=== PATIENT | male | born 1960 | race Caucasian/White ===

== ENCOUNTER 2023-08-17 12:37 | Outpatient (CLI) | payer OTHER ==
[2023-08-17 13:02] LABS: BASOPHILS % (AUTO) 0.3 %; EOSINOPHILS # (AUTO) 0.1 10^3/uL (0.0-0.7); EOSINOPHILS % (AUTO) 1.5 %; HCT - HEMATOCRIT 47.7 % (42.0-52.0); LYMPHOCYTES # (AUTO) 1.3 10^3/uL (1.5-3.5); LYMPHOCYTES % (AUTO) 15.8 %; MEAN CORPUSCULAR HEMOGLOBIN 30.8 pg (27.0-31.0); MEAN CORPUSCULAR HGB CONC 33.5 g/dL (32.0-36.0); MEAN CORPUSCULAR VOLUME 91.7 fL (80.0-94.0); MEAN PLATELET VOLUME 9.5 fL (7.4-11.4); MONOCYTES # (AUTO) 0.3 10^3/uL (0.0-1.0); MONOCYTES % (AUTO) 4.3 %; NEUTROPHILS # (AUTO) 6.2 10^3/uL (1.5-6.6); NEUTROPHILS % (AUTO) 77.8 %; PLT - PLATELET COUNT 285 10^3/uL (130-450)
[2023-08-17 13:11] LABS: ALBUMIN 4.3 g/dL (3.2-5.5); ALBUMIN/GLOBULIN RATIO 1.3 (1.0-2.2); ALKALINE PHOSPHATASE 75 IU/L (42-121); ALT ALANINE AMINOTRANSFERASE 21 IU/L (10-60); AST ASPARTATE AMINOTRANSFERASE 18 IU/L (10-42); BILIRUBIN,TOTAL 0.6 mg/dL (0.2-1.0); BUN - BLOOD UREA NITROGEN 17 mg/dL (6-20); CALCIUM 10.1 mg/dL (8.5-10.3); CARBON DIOXIDE - CO2 29 mmol/L (21-32); CHLORIDE 104 mmol/L (101-111); CHOL/HDL RATIO 4.7 (<5.0); CHOLESTEROL 231 mg/dL; CREATININE 1.1 mg/dL (0.6-1.3); GFR - MDRD 67 (>89); GLUCOSE 95 mg/dL (74-104); HDL CHOLESTEROL 49 mg/dL; LDL CHOLESTEROL,CALCULATED 147 mg/dL; POTASSIUM 4.2 mmol/L (3.5-4.5); SODIUM 138 mmol/L (135-145); TOTAL PROTEIN 7.5 g/dL (6.4-8.9); TRIGLYCERIDES 173 mg/dL (48-352); VLDL CHOLESTEROL 35 mg/dL
[2023-08-17 13:27] LABS: THYROID STIMULATING HORMONE 2.94 uIU/mL (0.34-5.60)
[2023-08-17 13:34] LABS: ESTIMATED AVERAGE GLUCOSE 103 mg/dL (70-100); HEMOGLOBIN A1c% 5.2 % (4.27-6.07)
== END 2023-08-17 12:38 | disposition home or self-care (01) ==
LOC: LAB 12:37
PROVIDERS: ATTEND Physician Assistant Medical
DX: Z13.9 Encounter for screening, unspecified (principal); Z86.718 Personal history of other venous thrombosis and embolism
CPT/HCPCS: 36415; 80053; 80061; 81241; 83036; 83090; 83721; 84153; 84443; 85025; 85300; 85303; 85306; 85598; 85613; 85732; 86147

== ENCOUNTER 2023-08-18 09:34 | Emergency (ER) | payer MEDICARE, OTHER ==
[2023-08-18 10:02] LABS: BASOPHILS % (AUTO) 0.4 %; EOSINOPHILS # (AUTO) 0.2 10^3/uL (0.0-0.7); EOSINOPHILS % (AUTO) 2.5 %; HCT - HEMATOCRIT 49.9 % (42.0-52.0); HGB - HEMOGLOBIN 16.1 g/dL (14.0-18.0); LYMPHOCYTES # (AUTO) 1.4 10^3/uL (1.5-3.5); LYMPHOCYTES % (AUTO) 19.8 %; MEAN CORPUSCULAR HEMOGLOBIN 29.7 pg (27.0-31.0); MEAN CORPUSCULAR HGB CONC 32.3 g/dL (32.0-36.0); MEAN CORPUSCULAR VOLUME 91.9 fL (80.0-94.0); MEAN PLATELET VOLUME 9.5 fL (7.4-11.4); MONOCYTES # (AUTO) 0.6 10^3/uL (0.0-1.0); MONOCYTES % (AUTO) 8.3 %; NEUTROPHILS % (AUTO) 68.7 %; PLT - PLATELET COUNT 280 10^3/uL (130-450); RED BLOOD COUNT 5.43 10^6/uL (4.70-6.10); WHITE BLOOD COUNT 7.2 x10^3/uL (4.8-10.8)
[2023-08-18 10:04] LABS: BILIRUBIN,URINE SMALL (NEGATIVE); GLUCOSE, URINE (UA) NEGATIVE (NEGATIVE); KETONES,URINE (UA) NEGATIVE (NEGATIVE); LEUKOCYTE ESTERASE, URINE NEGATIVE (NEGATIVE); NITRITE,URINE NEGATIVE (NEGATIVE); OCCULT BLOOD,URINE TRACE-INTA (NEGATIVE); PROTEIN,URINE NEGATIVE (NEGATIVE); UROBILINOGEN,URINE 0.2 (NORMAL) E.U./dL (NORMAL)
[2023-08-18 10:06] LABS: CLARITY,URINE CLEAR (CLEAR)
[2023-08-18 10:18] LABS: ALBUMIN 4.4 g/dL (3.2-5.5); ALBUMIN/GLOBULIN RATIO 1.4 (1.0-2.2); BILIRUBIN,TOTAL 0.8 mg/dL (0.2-1.0); CALCIUM 10.1 mg/dL (8.5-10.3); CREATININE 1.1 mg/dL (0.6-1.3); POTASSIUM 4.6 mmol/L (3.5-4.5); TOTAL PROTEIN 7.6 g/dL (6.4-8.9)
--- NOTE | 2023-08-18 10:30 | ED Physician Documentation ---
PD HPI ABD PAIN - Stated complaint Stated Complaint: DIZZY,ABD PX,NAUSEA - Chief complaint Chief Complaint: Abd Pain - History obtained from History obtained from: Patient - History of Present Illness Timing - onset: How many days ago (several days of consistent right flank pain, had had it intermitently for few weeks. No noted injury. No dysuria. No rash nor sores at onset of the pain. History of kidney stones and concerned about passing one. Also having positional vertigo the past few days. Vertigo when getting up from flat.) Timing - details: Abrupt onset, Waxing and waning (having feeling of vertigo with sitting up and turning head, improves but still faintinly there when holding head still.) Quality: Aching, Dull, Pain (consistnt in right flank area.) Location: Other (right mid abd to right flank.) Associated symptoms: Nausea, Vomiting (when the vertigo was strong after getting up.). No: Fever Similar symptoms before: Diagnosis (has had flank pain similarly due to kidney stones.) Review of Systems Constitutional: denies: Fever, Chills, Myalgias Nose: denies: Rhinorrhea / runny nose, Congestion Throat: denies: Sore throat Cardiac: denies: Chest pain / pressure Respiratory: denies: Cough Skin: denies: Rash, Lesions Neurologic: denies: Focal weakness, Numbness, Near syncope, Altered mental status, Headache, Head injury PD PAST MEDICAL HISTORY - Past Medical History Cardiovascular: Deep vein thrombosis Respiratory: None Neuro: None Endocrine/Autoimmune: None : Kidney stones Musculoskeletal: Other Other Past Medical History: chronic R shoulder pain - Past Surgical History Past Surgical History: No - Present Medications Home Medications: Ambulatory Orders Medication Instructions Recorded Confirmed Apixaban [Eliquis] 5 mg PO DAILY 08/18/23 08/18/23 Cetirizine [ZyrTEC] 10 mg PO DAILY #15 tablet 08/18/23 Lidocaine Patch 5% [Lidoderm Patch] 1 patch TOP DAILY PRN #10 patch 08/18/23 Meclizine [Antivert] 25 mg PO Q6H PRN #30 tablet 08/18/23 dexAMETHasone [Decadron] 4 mg PO DAILY #3 tablet 08/18/23 - Allergies Allergies/Adverse Reactions: Allergies Allergy/AdvReac Type Severity Reaction Status Date / Time No Known Drug Allergies Allergy Verified 08/18/23 09:47 - Social History Does the pt smoke?: No Smoking Status: Former smoker Does the pt drink ETOH?: No Does the pt have substance abuse?: No PD ED PE NORMAL - Vitals Vital signs reviewed: Yes - General General: Alert and oriented X 3, Well developed/nourished - HEENT HEENT: PERRL, EOMI (no nystagmus noted) - Neck Neck: Supple, no meningeal sign, No adenopathy, No bruit - Cardiac Cardiac: RRR, No murmur - Respiratory Respiratory: No respiratory distress, Clear bilaterally - Abdomen Abdomen: Soft, Non tender (noted to have some right CVA tenderness, no focal muscular tenderness. No rash, redness nor sores. No tenderness/pain to the left. ) - Derm Derm: Normal color, Warm and dry - Neuro Neuro: Alert and oriented X 3, ui ux engineer 2-12 intact, No motor deficit, No sensory deficit, Normal speech Eye Opening: Spontaneous Motor: Obeys Commands Verbal: Oriented GCS Score: 15 Results - Vitals Vitals: Vital Signs - 24 hr 08/18/23 08/18/23 09:40 12:51 Temperature 36.3 C L 36.3 C L Heart Rate 71 62 Respiratory 18 17 Rate Blood Pressure 133/89 H 137/86 H O2 Saturation 99 97 - Labs Labs: Laboratory Tests 08/18/23 08/18/23 08/18/23 09:52 09:56 09:56 WBC 7.2 RBC 5.43 Hgb 16.1 Hct 49.9 MCV 91.9 MCH 29.7 MCHC 32.3 RDW 13.0 Plt Count 280 MPV 9.5 Neut # (Auto) 5.0 Lymph # (Auto) 1.4 L [place] # (Auto) 0.6 Eos # (Auto) 0.2 Baso # (Auto) 0.0 Absolute Nucleated RBC 0.00 Nucleated RBC % 0.0 Sodium 136 Potassium 4.6 H Chloride 102 Carbon Dioxide 29 Anion Gap 5.0 L BUN 17 Creatinine 1.1 Estimated GFR (MDRD) 67 L Glucose 98 Calcium 10.1 Phosphorus Magnesium Total Bilirubin 0.8 AST 21 ALT 21 Alkaline Phosphatase 72 Total Protein 7.6 Albumin 4.4 Globulin 3.2 Albumin/Globulin Ratio 1.4 Lipase 25 Urine Color YELLOW Urine Clarity CLEAR Urine pH 6.0 Ur Specific [place] 1.025 Urine Protein NEGATIVE Urine Glucose (UA) NEGATIVE Urine Ketones NEGATIVE Urine Occult Blood TRACE-INTA Urine Nitrite NEGATIVE Urine Bilirubin SMALL H Urine Urobilinogen 0.2 (NORMAL) Ur Leukocyte Esterase NEGATIVE Ur Microscopic Review NOT INDICATED Urine Culture Comments NOT INDICATED 08/18/23 09:56 WBC RBC Hgb Hct MCV MCH MCHC RDW Plt Count MPV Neut # (Auto) Lymph # (Auto) [place] # (Auto) Eos # (Auto) Baso # (Auto) Absolute Nucleated RBC Nucleated RBC % Sodium Potassium Chloride Carbon Dioxide Anion Gap BUN Creatinine Estimated GFR (MDRD) Glucose Calcium Phosphorus 2.8 Magnesium 1.9 Total Bilirubin AST ALT Alkaline Phosphatase Total Protein Albumin Globulin Albumin/Globulin Ratio Lipase Urine Color Urine Clarity Urine pH Ur Specific [place] Urine Protein Urine Glucose (UA) Urine Ketones Urine Occult Blood Urine Nitrite Urine Bilirubin Urine Urobilinogen Ur Leukocyte Esterase Ur Microscopic Review Urine Culture Comments - Rads (name of study) brain MRI Relevant Findings:: Prelim report reviewed (normal brain parenchma. No acute process.) abd/pelvic CT Relevant Findings:: Prelim report reviewed (probably splenic infarct of uncertain duration. Fat containing inguinal hernias. L4/L5 DDD. No acute process otherwise. ), EMP independent interpretation of test (noted some cysts liver and right kidney, indicental. ) PD Medical Decision Making - ED course Complexity details: reviewed results (normal lytes and sodium in particular. Glucose is okay. Not evident cause of vertigo. UA without infection. ), considered differential (patient with 2 issues: right flank pain intermittent 2- 3 weeks, now consistent aching couple days. Also noting vertigo positionally for 2 days. He called his primary and orthopedist and they were concerned about CVA/central cause. He is having shoulder arthroscopy next week and needs to ensure not. ), d/w patient Reviewed Lab Results: he had labs and imaging. For the flank pain, CT was deemed best imaging for that with concerns of Pyelo, ureterolithiasis, vascular process, amongst others. MRI deemed best for brain as concern is for posterior circulation and CT yield/accuracy is lower for that. Pt was able to have Brain MRI and abd/pelvic CT obtained before having to go. He states he had important meeting in [place] and if able to be discharged, then needs to leave about 12:40 to make the meeting. My view of theimagings did not show acute process. Multiple cysts liver, right kidney, spleen. No noted kidney stones nor swelling. vertigo decreased with head turning after Toradl, Decdron and tylenol. He is driving home this after visit. Departure - Departure Disposition: 01 Home, Self Care Clinical Impression: Vertigo, Acute right flank pain Condition: Stable Record reviewed to determine appropriate education?: Yes Instructions: ED Flank Pain Uncertain Cause, ED Vertigo Unspecified Prescriptions: Meclizine [Antivert] 25 mg PO Q6H PRN #30 tablet PRN Reason: Vertigo dexAMETHasone [Decadron] 4 mg PO DAILY #3 tablet Lidocaine Patch 5% [Lidoderm Patch] 1 patch TOP DAILY PRN #10 patch PRN Reason: pain Cetirizine [ZyrTEC] 10 mg PO DAILY #15 tablet Comments: We are still awaiting the final report on the CT as well as the MRI of the brain. To my review of the imaging, I do not see any signs of kidney stones or kidney swelling and no other obvious acute process to account for the flank pain. The lumbar and lower thoracic spine also appears normal to my view. At this point I presume the pain is nerve irritation or muscular. Hopefully would be improved with some anti-inflammatories stretching heat and possibly a lidocaine patch to the area. See if you develop any other symptoms such as rash redness or sores but at this timing of it I would anticipate some skin tenderness or sores if it was shingles or skin process. No signs of compression fractures on your spine film. There certainly can be causes of pain there for other reasons such as musculoskeletal. Again on my view of it I do not see any obvious lesions in the brain to account for your dizziness such as stroke or tumors or swelling. Will call you if the radiologist sees something in particular. Otherwise your imaging results will be available on the patient portal later as well. For now we will presume you are vertigo is inner ear related which is by far the most common cause. I would suggest a combination of cetirizine antihistamine and Decadron steroid for inflammation. This will not affect your platelets or such and lieu of the upcoming shoulder surgery. Add meclizine every 6-8 hours if needed for vertigo. Tylenol every 4-6 hours if needed for the flank pain. I would not anticipate your vertigo getting in the way of your shoulder surgery. Tell them about it though so that they do not sit you up or lay her down quickly during the preop and postop process. I sent your prescriptions to your preferred pharmacy. Forms: PCP List Discharge Date/Time: 08/18/23 12:52
[2023-08-18] MEDS ORDERED: iohexoL-300 100 ML VIAL ONE (11:28)
[2023-08-18 11:36] LABS: MAGNESIUM 1.9 mg/dL (1.7-2.3); PHOSPHORUS 2.8 mg/dL (2.5-5.0)
[2023-08-18] MEDS: KETOROLAC 15 MG/ML VIAL IVP STA (11:36)
[2023-08-18] MEDS: MECLIZINE 12.5 MG TABLET PO STA (11:37)
[2023-08-18] MEDS: SODIUM CHLORIDE 0.9% 1,000 ML IV STA (11:37)
[2023-08-18] MEDS: DEXAMETHASONE 10 MG/ML VIAL IVP STA (11:37)
--- NOTE | 2023-08-18 12:25 | MRI Report ---
PROCEDURE: Brain WO INDICATIONS: vertigo for few days; blurred vison TECHNIQUE: Noncontrast axial T1 spin echo, axial T2 fast spin echo, sagittal and axial FLAIR, coronal T2 fast sp in echo, axial gradient echo, axial diffusion and ADC through the brain. COMPARISON: None. FINDINGS: Image quality: Excellent. CSF Spaces: Basal cisterns are patent. No extra-axial fluid collections. Ventricles are normal in size and shape. Brain: No intracranial masses or hemorrhage. Huynh/white matter interface is normal. Brainstem appe ars normal. Diffusion-weighted images demonstrate no acute ischemic insult. No chronic ischemic ins ults. Normal intravascular flow voids are present. Skull and face: Calvarium has normal marrow signal. Orbits appear normal. Sinuses: Sinuses and mastoids are clear. IMPRESSION: Brain MRI. Normal brain parenchyma. No acute intracranial process. Reviewed by: Sean Schafer MD on 08/18/2023 12:23 PM PDT Approved by: Sean Schafer MD on 08/18/2023 12:23 PM PDT Station ID: [id number]
[2023-08-18] MEDS: iohexoL-300 100 ML VIAL IVP ONE (12:36)
--- NOTE | 2023-08-18 12:50 | CT Report ---
PROCEDURE: Abdomen/Pelvis W INDICATIONS: right flank pain 2 days. CONTRAST: 100ml Omni TECHNIQUE: After the administration of intravenous contrast, a CT scan of the abdomen and pelvis was performed. Images were recorded and evaluated at appropriate window settings. Reformats: coronal and sagittal. F or radiation dose reduction, the following was used: automated exposure control, adjustment of mA and /or kV according to patient size. COMPARISON: None. FINDINGS: Image quality: Diagnostic. Lower chest: Unremarkable. Liver: No solid mass. Gallbladder and biliary tree: No radiopaque stones or wall thickening. No biliary dilation. Spleen: No splenomegaly. Question focal splenic infarct of uncertain chronicity.. Pancreas: No pancreatic ductal dilation. Adrenals: No adrenal nodule. Kidneys and ureters: No hydronephrosis. No renal cystic lesion which requires follow up. No solid mas s. Stomach, bowel and peritoneum: No bowel distension. No pathologic free fluid. Normal appendix. Lymph nodes: No central or retroperitoneal adenopathy. Vessels: No infrarenal aortic aneurysm. PELVIS Reproductive organs: Unremarkable. Bladder: No abnormal wall thickening, accounting for underdistention. Pelvic lymph nodes: No pelvic adenopathy by size criteria. Bones: No aggressive osseous abnormality.. Lumbar degenerative change with canal stenosis at L4-L5. Other: Bilateral fat-containing inguinal hernias.. IMPRESSION: 1. 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 2.. No other potentially acute process noted in the abdomen and pelvis. 3. Bilateral fat-containing inguinal hernias. 4. Incidental note made of canal stenosis at L4-L5. Reviewed by: Sean Schafer MD on 08/18/2023 12:49 PM PDT Approved by: Sean Schafer MD on 08/18/2023 12:49 PM PDT Station ID: [id number]
[2023-08-18 12:57] VITALS: BP 137/86; O2SAT 97
== END 2023-08-18 12:52 | disposition home or self-care (01) ==
LOC: ED 09:34
DX: R42 Dizziness and giddiness (principal); R10.9 Unspecified abdominal pain; Z87.891 Personal history of nicotine dependence
CPT/HCPCS: 36415; 70551; 74177; 80053; 81003; 83690; 83735; 84100; 85025; 96374; 96375; 99284; A9270; Q9967; 81001; 87086

== ENCOUNTER 2023-09-28 08:18 | Emergency (ER) | payer MEDICARE ==
[2023-09-28 08:31] VITALS: BP 128/79; O2SAT 96
--- NOTE | 2023-09-28 09:12 | ED Physician Documentation ---
PD HPI SKIN - Stated complaint Stated Complaint: LUMP ON LT HIP/GROIN - Chief complaint Chief Complaint: Wound - History obtained from History obtained from: Patient - Additional information Additional information: The patient comes to the emergency department chief complaint of "lump in the left groin". He states it started about a week ago and actually was bigger initially than it is now. He states it is right where his underwear rubs and he thought maybe he had an ingrown hair. He was out of town for business and so he did not get checked out at that time. He denies any fevers or chills. He had a little bit of bloody drainage from the area and that was after that that the size seem to shrink down significantly. He states the largest was about twice as big as it is now. The patient denies any other symptoms or complaints at this time. No history of hernia. PD PAST MEDICAL HISTORY - Past Medical History Past Medical History: Yes Cardiovascular: Deep vein thrombosis Respiratory: None Neuro: None Endocrine/Autoimmune: None : Kidney stones Musculoskeletal: Other - Past Surgical History Past Surgical History: No - Present Medications Home Medications: Ambulatory Orders Medication Instructions Recorded Confirmed HYDROcod/ACETAM 5/325 [[place] 5/325] 1 - 2 tablet PO Q6H PRN #10 tablet 09/28/23 Sulfamethox/Trimeth 800/160 1 each PO BID #14 tablet 09/28/23 [Bactrim Ds 800/160] - Allergies Allergies/Adverse Reactions: Allergies Allergy/AdvReac Type Severity Reaction Status Date / Time No Known Drug Allergies Allergy Verified 08/18/23 09:47 - Social History Does the pt smoke?: No Smoking Status: Never smoker Does the pt drink ETOH?: No Does the pt have substance abuse?: No PD ED PE NORMAL - Vitals Vital signs reviewed: Yes - General General: Alert and oriented X 3, No acute distress, Well developed/nourished - HEENT HEENT: Atraumatic, EOMI, Moist mucous membranes - Neck Neck: Supple, no meningeal sign - Respiratory Respiratory: No respiratory distress - Abdomen Abdomen: Soft, Non distended - Male Male : Other (No palpable inguinal hernia. Mass as noted below. No erythema.) - Derm Derm: Warm and dry, Other (3 cm diameter area of induration and slight elevation in the patient's left inguinal area. Patient has significant amount of hair in the area. Tiny, approximately 1 to 2 mm opening at the apex with mild bloody drainage expressible. Approximately 1 cm diameter area of fluctuance surrounding. ) - Extremities Extremities: No deformity - Neuro Neuro: Alert and oriented X 3 - Psych Psych: Normal mood, Normal affect Results - Vitals Vitals: Vital Signs - 24 hr 09/28/23 08:24 Temperature 36.6 C Heart Rate 66 Respiratory 15 Rate Blood Pressure 128/79 O2 Saturation 96 Procedures - Abscess I&D (location) Left groin Preparation: Betadine, Lidocaine 1% Incision: Incised with scalpel, Irrigated, Packed, Other (Thickened sebum versus thickened purulent material, Semisolid, expressed from wound. No further material in cavity.) Other: Pt tolerated well, Dressing applied, Antibiotic prescribed PD Medical Decision Making - ED course Complexity details: considered differential, d/w patient ED course: I discussed with the patient that he could just have had a blocked sebaceous Gland or this could be a hair follicle that became obstructed and infected. At this point in time, I will start him on antibiotics, though there is not any evidence of cellulitis surrounding the area. I have placed a small amount of packing and we have discussed the need to have this removed in 2 days. Departure - Departure Disposition: 01 Home, Self Care Clinical Impression: Abscess of skin Qualifiers: Site of cutaneous abscess: other site Qualified Code(s): L02.818 - Cutaneous abscess of other sites Condition: Stable Instructions: ED Abscess IandD Prescriptions: Sulfamethox/Trimeth 800/160 [Bactrim Ds 800/160] 1 each PO BID #14 tablet HYDROcod/ACETAM 5/325 [[place] 5/325] 1 - 2 tablet PO Q6H PRN #10 tablet PRN Reason: Pain Comments: Your prescriptions have been electronically transmitted to the [facility] in [place]. You had some very thick, whitish material within the cavity which is either sebum, the oily substance that helps lubricate your skin and is put up by special glans, or it could be thickened pus. There is no evidence of an extensive infection around the site, but you will be started on antibiotics to be sure that any present infection has been eradicated. A small wick of gauze has been placed within your wound to keep it open for the next couple of days. If this comes out on its own that is fineit does not need to be replaced. If it is still there after 2 days, you may pull it out yourself or you may go to the walk-in clinic, primary doctor's office, or here to the emergency department to have it removed if you wish. Please take the entire course of your antibiotics until the course is complete. Please follow-up with your primary doctor as needed.
== END 2023-09-28 09:30 | disposition home or self-care (01) ==
LOC: ED 08:18
DX: L02.818 Cutaneous abscess of other sites (principal)
CPT/HCPCS: 10061